=== PATIENT | male | born 1940 | race Caucasian/White ===

== ENCOUNTER 2016-10-13 19:50 | Emergency (ER) | payer MEDICARE, BC ==
[~2016-10-13] VITALS: Ht 185.4 cm; Wt 69.9 kg
[~2016-10-13 19:50] MED LIST: ALBU0.63 NEB; AMIO200T2 PO; ASPI81TA2 PO; DIAZ5TAB4 PO; FINA5TAB4 PO; FLUO10TA PO; FLUT1DIS3 IH; FOLI1TAB16 PO; GABA-586 PO; HYDR-2666 PO; METH2.5T PO; METO25TA4 PO; OMEP20TA PO; OXYC-323 PO; SIMV10TA3 PO; TAMS0.4C2 PO; ZOLP10TA PO
--- NOTE | 2016-10-13 20:28 | PHYS DOC ---
Past Medical History Past Medical History: Arthritis, CAD, COPD, Depression, GERD, High Cholesterol , OR, Prostatitis, Other Additional Past Medical Histor: NEUROPATHY Past Surgical History: Angioplasty, Coronary Bypass Surgery Additional Past Surgical Histo: aneurysm repair, bi lat knee. rt shoulder Additional Information: chews tabacco Alcohol Use: Occasionally Drug Use: None Adult General Chief Complaint Chief Complaint: SHORTNESS OF BREATH HPI HPI 76-year-old male with a history of COPD presenting to the emergency department today with shortness of breath. His shortness of breath started approximately 24 -48 hours ago. He denies any fevers but has had a cough that is nonproductive. He denies chest pain. He denies abdominal pain nausea vomiting or diaphoresis. Location lungs. Duration intermittent. Alleviated by nebulizers. He has been using his nebulizers at home which has mildly improved his symptoms. He received 125 mg of IV Solu-Medrol in route along with a DuoNeb therapy. Review of systems is negative for abdominal pain fevers chills. He denies productive cough neck stiffness confusion. He denies cyanosis lethargy. All other review of systems is negative unless otherwise noted in history of present illness. Review of Systems Review of Systems SEE ABOVE. Current Medications Current Medications Current Medications Medications (Trade) Dose Ordered Sig/Oracio Start Time Stop Time Status Last Admin Dose Admin Albuterol/ Ipratropium (Duoneb) 3 ml 1X ONCE 10/13/16 20:30 10/13/16 20:31 DC Allergies Allergies Allergies Coded Allergies Type Severity Reaction Last Updated Verified No Known Drug Allergies 12/13/15 No Physical Exam Physical Exam Constitutional: Well developed, well nourished, no acute distress, non-toxic appearance. HENT: Normocephalic, atraumatic, bilateral external ears normal, oropharynx moist, no oral exudates, nose normal. [] Eyes: PERRLA, EOMI, conjunctiva normal, no discharge. Neck: Normal range of motion, no tenderness, supple, no stridor. 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 Lungs & Thorax: Patient has prolonged expiratory phase with wheezing present. No crackles present. Abdomen: Bowel sounds normal, soft, no tenderness, no masses, no pulsatile masses. Skin: Warm, dry, no erythema, no rash. [] Back: No tenderness, no CVA tenderness. [] Extremities: No tenderness, no cyanosis, no clubbing, ROM intact, no edema. [] Neurologic: Alert and oriented X 3, normal motor function, normal sensory function, no focal deficits noted. Psychologic: Affect normal, judgement normal, mood normal. [] Current Patient Data Vital Signs Vital Signs Date Time Temp Pulse Resp B/P Pulse Ox O2 Delivery O2 Flow Rate FiO2 10/13/16 20:03 98.6 100 20 117/59 94 Room Air 98.6 Lab Values Laboratory Tests Test 10/13/16 20:15 White Blood Count 9.9x10^3/uL (4.0-11.0) Red Blood Count 3.85x10^6/uL (4.30-5.70) L Hemoglobin 12.9g/dL (13.0-17.5) L Hematocrit 38.4% (39.0-53.0) L Mean Corpuscular Volume 100fL (79-100) Mean Corpuscular Hemoglobin 33pg (25-35) Mean Corpuscular Hemoglobin Concent 34g/dL (31-37) Red Cell Distribution Width 13.9% (11.5-14.5) Platelet Count 148x10^3/uL (140-400) Neutrophils (%) (Auto) 77% (31-73) H Lymphocytes (%) (Auto) 14% (24-48) L Monocytes (%) (Auto) 8% (0-9) Eosinophils (%) (Auto) 1% (0-3) Basophils (%) (Auto) 1% (0-3) Neutrophils # (Auto) 7.6x10^3uL (1.8-7.7) Lymphocytes # (Auto) 1.4x10^3/uL (1.0-4.8) Monocytes # (Auto) 0.7x10^3/uL (0.0-1.1) Eosinophils # (Auto) 0.1x10^3/uL (0.0-0.7) Basophils # (Auto) 0.1x10^3/uL (0.0-0.2) Sodium Level 140mmol/L (136-145) Potassium Level 4.1mmol/L (3.5-5.1) Chloride Level 102mmol/L (98-107) Carbon Dioxide Level 28mmol/L (21-32) Anion Gap 10 (6-14) Blood Urea Nitrogen 19mg/dL (8-26) Creatinine 0.9mg/dL (0.7-1.3) Estimated GFR (Cockcroft-Gault) 82.5 Glucose Level 132mg/dL (70-99) H Calcium Level 8.9mg/dL (8.5-10.1) Total Bilirubin 0.3mg/dL (0.2-1.0) Direct Bilirubin 0.1mg/dL (0.0-0.2) Aspartate Amino Transferase (AST) 13U/L (15-37) L Alanine Aminotransferase (ALT) 18U/L (16-63) Alkaline Phosphatase 99U/L (46-116) Troponin I Quantitative < 0.017ng/mL (0.000-0.055) ZD-Xlk-W-Type Natriuretic Peptide 337pg/mL (0-124) H Total Protein 6.7g/dL (6.4-8.2) Albumin 3.1g/dL (3.4-5.0) L Lipase 60U/L (73-393) L Laboratory Tests 10/13/16 20:15 Laboratory Tests 10/13/16 20:15 EKG EKG EKG shows a sinus rhythm with a mildly tachycardic rate. ST segments are congruent. Intervals are within normal limits. [] Radiology/Procedures Radiology/Procedures Chest x-ray reviewed by myself shows no obvious infiltrate or pneumothorax present. No obvious acute cardiopulmonary process present.[] Course & Med Decision Making Course & Med Decision Making Pertinent Labs and Imaging studies reviewed. (See chart for details) [] 76-year-old male presenting to the emergency department today with signs and symptoms suggestive of a COPD exacerbation. The patient's vital signs. Pertinent physical exam findings showed wheezing bilaterally with prolonged x- ray phase. Chest x-ray obtained. EKG unremarkable. Blood work obtained. The patient was given duo nebs in the emergency department. He received IV steroids prior to arrival by EMS. On reevaluation, the patient is feeling better. We were able to walk the patient and the emergency department and he did not desaturate. He stated he was feeling better and desired to be discharged. I offered him hospitalization however he declined. 10 minutes of smoking cessation counseling was given during this visit. Dragon Disclaimer Dragon Disclaimer This electronic medical record was generated, in whole or in part, using a voice recognition dictation system. Departure Departure Impression: Primary Impression: COPD exacerbation Disposition: HOME, SELF-CARE Condition: STABLE Referrals: UNKNOWN PCP NAME (PCP) PEDRO SILVESTRE MD Patient Instructions: Chronic Obstructive Pulmonary Disease, Shortness of Breath, Smoking Cessation, Smoking Cessation, Tips For Success Additional Instructions: Thank you for allowing us to participate in your care today. Followup with your primary care physician in 3 days if your symptoms do not improve. If you do not have a primary care provider you can ask for a list of our primary care providers. Return to the emergency department you have any new or concerning findings. This should be evaluated by the primary care physician and any necessary consulting services for continued management within a few days after discharge. Return to emergency room if you have any new or concerning symptoms including but not limited to fever, chills, nausea, vomiting, intractable pain, any new rashes, chest pain, shortness of air, uncontrolled bleeding, difficulty breathing, and/or vision loss. You may have been prescribed medication that can change in your level of thinking and ability to operate machinery. These medications include hydrocodone and Ativan. Also, Benadryl has been known to do this as well. Be sure to check with your pharmacist and ask if the medications you've prescribed can affect your level of consciousness. I recommend not operating heavy machinery or driving while on medication such as these. Scripts Prednisone 50 Mg Opzuit45 Mg PO DAILY #4 TAB Prov:REECE KILGORE MD 10/13/16 REECE KILGORE MD Oct 13, 2016 20:28
[2016-10-13 20:29] LABS: BASO # 0.1 x10^3/uL (0.0-0.2); BASO % 1 % (0-3); EOS % 1 % (0-3); HEMATOCRIT 38.4 % (39.0-53.0); HEMOGLOBIN 12.9 g/dL (13.0-17.5); LYMPH # 1.4 x10^3/uL (1.0-4.8); LYMPH % 14 % (24-48); MEAN CORPUSCULAR HEMOGLOBIN 33 pg (25-35); MEAN CORPUSCULAR HGB CONC 34 g/dL (31-37); MEAN CORPUSCULAR VOLUME 100 fL (79-100); MONO % 8 % (0-9); NEUT % 77 % (31-73); PLATELET COUNT 148 x10^3/uL (140-400); RED BLOOD COUNT 3.85 x10^6/uL (4.30-5.70); RED CELL DISTRIBUTION WIDTH 13.9 % (11.5-14.5); WHITE BLOOD COUNT 9.9 x10^3/uL (4.0-11.0)
[2016-10-13] MEDS ORDERED: IPRATRPIUM/ALBUTEROL 0.5/2.5MG 3 ML NEBU. NEB ONE (20:30)
[2016-10-13 20:51] LABS: ALBUMIN 3.1 g/dL (3.4-5.0); CALCIUM 8.9 mg/dL (8.5-10.1); CREATININE 0.9 mg/dL (0.7-1.3); DIRECT BILIRUBIN 0.1 mg/dL (0.0-0.2); GFR 82.5; POTASSIUM 4.1 mmol/L (3.5-5.1); TOTAL BILIRUBIN 0.3 mg/dL (0.2-1.0); TOTAL PROTEIN 6.7 g/dL (6.4-8.2)
[2016-10-13 21:26] VITALS: BP 109/58
[2016-10-13] MEDS ORDERED: PRED50TA PO (21:43)
--- NOTE | 2016-10-14 08:53 | RAD ---
Portable AP upright view CXR: Clinical indications: Chest pain today. Comparison: December 13, 2015 Findings: No acute lung infiltrate or pleural effusion or pulmonary edema or lung mass or pneumothorax is seen. A sternotomy is evident. 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 The heart size, pulmonary vasculature, mediastinum and both angelo are otherwise unremarkable. Impression: No acute radiographic abnormality is seen.
--- NOTE | 2016-10-14 12:32 | EKG ---
[facility] [address] [place] [id number] Test Date: 2016-10-13 Test Time: 20:04:51 Pat Name: JUSTIN MCCONNELL Department: Room: Gender: M [employer]: : 1940 Requested By: REECE KILGORE Order Number: [id number] Reading MD: Measurements Intervals [place] Rate: 100 P: 90 PA: 154 QRS: 33 QRSD: 88 T: 75 QT: 328 QTc: 426 Interpretive Statements SINUS RHYTHM QRS(T) CONTOUR ABNORMALITY CONSISTENT WITH INFERIOR INFARCT PROBABLY OLD ABNORMAL ECG RI6.01 No previous ECG available for comparison
[2016-10-15] MEDS ORDERED: FINA5TAB4 PO (12:11)
[2016-10-15] MEDS ORDERED: OXYC5CAP3 PO (12:11)
[2016-10-15] MEDS ORDERED: [UNRECOGNIZED DRUG - CODE] PO (12:11)
[2016-10-15] MEDS ORDERED: MIRT15TA3 PO (12:11)
[2016-10-15] MEDS ORDERED: AMMO225L5 TP (12:11)
[2016-10-15] MEDS ORDERED: HYDR200T5 PO (12:11)
[2016-10-15] MEDS ORDERED: METH2.5T PO (12:11)
[2016-10-15] MEDS ORDERED: CHOL20004 PO (12:11)
[2016-10-15] MEDS ORDERED: FLUO60TA PO (12:11)
[2016-10-15] MEDS ORDERED: ACET325T9 PO (12:11)
[2016-10-15] MEDS ORDERED: KETO15CR TP (12:11)
[2016-10-15] MEDS ORDERED: CYAN100072 PO (12:11)
[2016-10-15] MEDS ORDERED: OMEP20CA9 PO (12:11)
[2016-10-15] MEDS ORDERED: MULT-289 PO (12:11)
[2016-10-15] MEDS ORDERED: SIMV20TA3 PO (12:11)
[2016-10-15] MEDS ORDERED: BUDE10.2 IH (12:11)
[2016-10-15] MEDS ORDERED: BETA15OI6 TP (12:11)
[2016-10-15] MEDS ORDERED: TIOT18CA IH (12:11)
[2016-10-15] MEDS ORDERED: CALC60CR TP (12:11)
[2016-10-15] MEDS ORDERED: INDO50CA PO (12:11)
[2016-10-15] MEDS ORDERED: TAMS0.4C2 PO (12:11)
[2016-10-17] MEDS ORDERED: PRED-220 PO (14:32)
[2016-10-17] MEDS ORDERED: CEFP100T PO (14:32)
== END 2016-10-13 21:57 | disposition home or self-care (01) ==
LOC: ER 19:50
DX: J44.1 Chronic obstructive pulmonary disease with (acute) exacerbation (principal); E78.00 Pure hypercholesterolemia, unspecified; G62.9 Polyneuropathy, unspecified; K21.9 Gastro-esophageal reflux disease without esophagitis; I25.10 Atherosclerotic heart disease of native coronary artery without angina pectoris; F32.9 Major depressive disorder, single episode, unspecified; I25.2 Old myocardial infarction; M19.90 Unspecified osteoarthritis, unspecified site; Z95.1 Presence of aortocoronary bypass graft; Z95.5 Presence of coronary angioplasty implant and graft; F17.220 Nicotine dependence, chewing tobacco, uncomplicated
CPT/HCPCS: 36415; 71010; 80048; 80076; 83690; 83880; 84484; 85027; 93005; 94640; 99406; 99285-25